=== PATIENT | female | born 1995 | race Caucasian/White ===

== ENCOUNTER 2020-02-22 17:20 | Emergency (ER) | payer BC, OTHER ==
[~2020-02-22] VITALS: Ht 170 cm; Wt 131.0 kg
[2020-02-22 17:31] VITALS: BP 156/93
--- NOTE | 2020-02-22 17:33 | ED General ---
General Chief Complaint: Bite-Animal/Human/Insect Stated Complaint: TICK BITE ON BACK OF NECK History of Present Illness Date Seen by Provider: Feb 22, 2020 Time Seen by Provider: 17:25 Initial Comments 24 yo female just noticed and removed a tick from her right occipital scalp this morning I can't tell from her history whether it was engorged or not she says the site is sore and when specifically asked about headache and neck stiffness she says yes to both she does not appear ill at all no fever she is breast feeding Allergies and Home Medications Patient Home Medication List Home Medication List Reviewed: Yes Review of Systems Review of Systems Constitutional: no symptoms reported EENTM: other (sore area right occipital scalp) Respiratory: no symptoms reported Cardiovascular: no symptoms reported Gastrointestinal: no symptoms reported Genitourinary: no symptoms reported Musculoskeletal: no symptoms reported Skin: no symptoms reported Past Llhfeei-Zofodz-Bgcupc Hx Patient Social History Recent Foreign Travel: No Contact w/Someone Who Travel: No Physical Exam Vital Signs Capillary Refill : Height, Weight, BMI Height: '" Weight: lbs. oz. kg; BMI Method: General Appearance: No Apparent Distress Eyes: Bilateral Eye PERRL, Bilateral Eye EOMI HEENT: PERRL/EOMI, TMs Normal, Normal ENT Inspection, Pharynx Normal, Other (patient does have a slightly reddened and tender area in the right occipital scalp with a central raymond) Neck: Supple Respiratory: Lungs Clear Cardiovascular: Regular Rate, Rhythm Gastrointestinal: Normal Bowel Sounds Skin: No Rash Progress/Results/Core Measures Suspected Sepsis SIRS Temperature: Pulse: Respiratory Rate: Blood Pressure / Mean: Results/Orders Vital Signs/I&O Capillary Refill : Departure Impression Primary Impression: Tick bite Qualified Codes: W57.XXXA - Bitten or stung by nonvenomous insect and other nonvenomous arthropods, initial encounter Disposition: HOME, SELF-CARE Condition: Unchanged Departure-Patient Inst. Decision time for Depature: 17:35 Patient Instructions: Rickettsial Infections (DC) Scripts Amoxicillin (Amoxicillin) 500 Mg Capsule 500 MG PO TID, #21 CAP 0 Refills Prov: BRIGETTE GUZMAN MD 02/22/20 BRIGETTE GUZMAN MD Feb 22, 2020 17:33
[2020-02-22] MEDS ORDERED: AMOX500C2 PO (17:36)
--- OUTSIDE RECORDS SUMMARY | 2020-02-22 21:34 | XMS REPORT | Continuity of Care Document ---
Author Organization Unknown Address Unknown Phone Unavailable Allergies There is no data. Medications There is no data. Problems There is no data. Procedures There is no data. Results Test Result Range TEST AUTHORIZATION - 02/08/19 10:33 TEST NAME: VITAMIN D,25-OH,TOTAL,IA NR G TEST CODE: [id number] NRG CLIENT CONTACT: GILBERTO Garcia NRG REPORT ALWAYS MESSAGE SIGNATURE NRG COMMENT NRG Encounters ACCT No. Visit Date/Time Discharge Status Pt. Type Provider Facility Loc./Unit Complaint [id number] 02/08/2019 10:40:00 02/08/2019 23:59: 59 CLS Outpatient [facility] [id number] 02/08/2019 10:40:00 Document Registration [id number] 02/22/2020 17:22:00 020 17:42:00 DIS Emergency MEGAN PEREZ, BRIGETTE Lerner [facility] ER FS TICK BITE ON BACK OF NE CK
== END 2020-02-22 17:42 | disposition home or self-care (01) ==
LOC: ER FS 17:22
DX: S10.86XA Insect bite of other specified part of neck, initial encounter (principal); W57.XXXA Bitten or stung by nonvenomous insect and other nonvenomous arthropods, initial encounter
CPT/HCPCS: 99283